=== PATIENT | female | born 1970 | race Caucasian/White ===

== ENCOUNTER → 2017-12-31 | Outpatient (CLI) | payer OTHER | LOC: M.RAD 14:42 | DX: Z12.31 Encounter for screening mammogram for malignant neoplasm of breast (principal) ==

== ENCOUNTER → 2019-02-24 | Outpatient (CLI) | payer OTHER | LOC: M.RAD 09:33 | DX: Z12.31 Encounter for screening mammogram for malignant neoplasm of breast (principal) ==

== ENCOUNTER → 2019-03-03 | Outpatient (CLI) | payer OTHER | LOC: M.RAD 10:57 → M.ULTRA 13:30 | DX: N63.11 Unspecified lump in the right breast, upper outer quadrant (principal) ==

== ENCOUNTER → 2020-03-08 | Outpatient (CLI) | payer BC | LOC: M.RAD 10:53 | PROVIDERS: ATTEND Family Medicine | DX: Z12.31 Encounter for screening mammogram for malignant neoplasm of breast (principal) ==

== ENCOUNTER → 2021-03-07 | Outpatient (CLI) | payer OTHER | LOC: M.RAD 09:26 | PROVIDERS: ATTEND Family Medicine | DX: Z12.31 Encounter for screening mammogram for malignant neoplasm of breast (principal) ==